=== PATIENT | male | born 1960 | race African-American/Black ===

== ENCOUNTER 2021-02-16 21:08 | Emergency (ER) | payer OTHER ==
[~2021-02-16] VITALS: Ht 185.4 cm; Wt 72.6 kg
[2021-02-17 02:15] VITALS: BP 130/80
== END 2021-02-17 02:16 | disposition home or self-care (01) ==
LOC: ER 21:08
DX: F10.129 Alcohol abuse with intoxication, unspecified (principal); Y90.9 Presence of alcohol in blood, level not specified